=== PATIENT | female | born 1955 | race Caucasian/White ===

== ENCOUNTER → 2016-12-28 | Outpatient (CLI) | payer OTHER ==
[2016-12-28 09:44] LABS: BLOOD UREA NITROGEN 13 mg/dL (7-22); BUN/CREATININE RATIO 14.44 (6-20); CALCIUM 8.9 mg/dL (8.7-10.7); EST GLOMERULAR FILTRATION > 60 (>60 ml/min/1.73m(2)); SERUM ALBUMIN 4.2 g/dL (3.5-4.8)
[2016-12-28 10:08] LABS: HEMATOCRIT 40.2 % (37.0-47.0); HEMOGLOBIN 13.7 g/dL (12.0-16.0); MEAN CORPUSCULAR HEMOGLOBIN 31.2 PG (27-31); MEAN CORPUSCULAR HGB CONC 34.1 g/dL (33-37); MEAN CORPUSCULAR VOLUME 91.6 FL (81-99); MEAN PLATELET VOLUME 9.2 FL (7.4-12.2); RED BLOOD COUNT 4.39 10^6/uL (4.20-5.40)
[2016-12-28 10:09] LABS: BASOPHILS # (AUTO) 0.06 10*3/UL; BASOPHILS % (AUTO) 1.3 % (0-1); EOSINOPHILS # (AUTO) 0.29 10*3/UL; EOSINOPHILS % (AUTO) 6.4 % (0-8); LYMPHOCYTES # (AUTO) 1.67 10*3/uL; MONOCYTES # (AUTO) 0.42 10*3/UL (0.3-0.8); MONOCYTES % (AUTO) 9.2 % (5-15); NEUTROPHILS # (AUTO) 2.11 10*3/UL; NEUTROPHILS % (AUTO) 46.3 % (50-80)
[2016-12-28 10:10] LABS: CHOL/HDL RATIO 3.53 RATIO (0-4.0); LDL CHOLESTEROL,CALCULATED 82.4 mg/dL; PLATELET MORPHOLOGY COMMENT NORMAL MORPHOLOGY (NORM); RBC MORPHOLOGY COMMENT NORMAL MORPHOLOGY (NORM); WBC MORPHOLOGY COMMENT NORMAL MORPHOLOGY (NORM)
== END ==
LOC: LAB 08:04
PROVIDERS: ATTEND Nurse Practitioner Family
DX: E78.5 Hyperlipidemia, unspecified (principal); E03.9 Hypothyroidism, unspecified; K21.9 Gastro-esophageal reflux disease without esophagitis
CPT/HCPCS: 36415; 80053; 80061; 84443; 85025

== ENCOUNTER → 2016-12-31 | Outpatient (CLI) | payer OTHER ==
--- NOTE | 2016-12-31 20:02 | DI ---
CT BONE DENSITOMETRY OF THE SPINE AND HIP, 12/31/2016 9:56 AM : Clinical History: Osteoporosis. Previous Exam: 08/25/2007; 09/09/2009; 07/08/2012; 07/27/2014. 3D Quantitative CT (QCT) Bone Mineral Densitometry: The [place] scans are normal. Low dose scans are sampled through the midbodies of L1 and L2. Average bone mineral density (BMD) is 101.1 mg/mL corresponding to a volumetric T-score of -2.6 and Z-score o f 0.0. The [employer]'s (ACR) volumetric QCT BMD conversion table categorizes this patient as having osteopenia of the lumbar spine. The previous exams gave bone mineral density value s of 95.0, 88.0, 74.5, and 75.[address] X-Ray Absorptiometry (CTXA) Bone Mineral Densitometry of the Left Hip: Total hip BMD: 730 mg/cm2 T-score: -1.7 Z-score: -0.6 Femoral neck BMD: 628 mg/cm2 T-score: -1.5 Z-score: -0.3 READIN. The QCT lumbar spine BMD value by ACR's 3D volumetric to 2D areal conversion categorizes this pat ient as having osteopenia of the lumbar spine. The QCT spine T-score is -2.6, indicating osteoporosis of the lumbar spine. The bone mineral density of the lumbar spine has improved since the previous sc ans. 2. The CTXA total hip and femoral neck BMD T-scores are -1.7 and -1.5, respectively. The left total hip T-score indicates this patient has osteopenia of the total hip.
== END ==
LOC: CT 09:49
PROVIDERS: ATTEND Nurse Practitioner Family
DX: M81.0 Age-related osteoporosis without current pathological fracture (principal)
CPT/HCPCS: 77078